=== PATIENT | male | born 1940 | race Caucasian/White ===

== ENCOUNTER 2018-04-14 09:59 | Day surgery (SDC) | payer OTHER ==
[2018-04-14] MEDS ORDERED: PROPOFOL 20 ML (12:27)
== END 2018-04-14 15:20 | disposition home or self-care (01) ==
LOC: GIL 09:59
DX: K64.8 Other hemorrhoids (principal); K21.9 Gastro-esophageal reflux disease without esophagitis; K29.60 Other gastritis without bleeding
CPT/HCPCS: 43239; 88305; 88312